=== PATIENT | male | born 1985 | race Caucasian/White ===

== ENCOUNTER 2020-03-31 14:33 | Emergency (ER) | payer OTHER, SELFPAY ==
[2020-03-31 15:34] VITALS: BP 158/88; PULSE 82; RESP 16; TEMP 36.5; O2SAT 97; BMI 23.6
--- NOTE | 2020-03-31 16:58 | ED.DENTAL ---
HPI - Dental/Oral General Chief complaint: Dental/Oral Stated complaint: DENTAL PAIN Time Seen by Provider: 03/31/20 16:52 Source: patient Mode of arrival: ambulatory History of Present Illness HPI Narrative: 34-year-old male presenting to ED complaining of bilateral lower dental pain worsening over the past few days. Reports pain throbbing, presenting him from sleeping. Admits to dental issue/broken teeth, has been on able to make a dental appointment due to work schedule. Denies radiation to your/throat, oral swelling, fever/chills, drainage from area MD Complaint: tooth pain Related Data Previous Rx's Medication Instructions Recorded acetaminophen-codeine 1 tab PO Q6H PRN 3 Days #9 tab 03/31/20 ibuprofen 600 mg PO Q6H PRN #20 tab 03/31/20 Allergies Allergy/AdvReac Type Severity Reaction Status Date / Time No Known Allergies Allergy Unverified 02/07/20 15:24 Review of Systems Review of Systems: Constitutional: No Weight loss, No Fever, No Chills ENT/Mouth: No Ear Pain, No Nasal Congestion, No Sinus Pain, No Hoarseness, No sore throat, No Rhinorrhea, No Swallowing Difficulty, +dental pain Skin: No Skin Lesions, No rash Yes all other systems are reviewed and are negative [facility] Past Medical History Attestation statement: The following information was validated with the patient. Social History Social History Advance Directives: No Advance Directives Information Provided: Yes Physical Exam Vital Signs: Vital Signs: Last Vital Signs Temp 97.7 F 03/31/20 15:34 Pulse 82 03/31/20 15:34 Resp 16 03/31/20 15:34 BP 158/88 H 03/31/20 15:34 Pulse Ox 97 03/31/20 15:34 Body Mass Index 23.6 Const: General: cooperative and healthy appearing Orientation/consciousness: patient oriented x3 Limitations: no limitations HENMT: Other: Poor dentition. Broken left lower and right lower molars. No gingival swelling/erythema. No fluctuance or induration. + TTP over both broken teeth, no intraoral swelling Head: Yes normal to inspection Ears: hearing grossly normal bilaterally General nose exam: Normal external nose present Face and sinus: Yes normal facial exam Mouth: Normal oral and palatal mucosa present, no drooling and no muffled voice Teeth and gingiva: poor dentition Throat: Yes posterior oropharynx normal and Yes uvula midline Eyes: General: appearance normal, both eyes and all related structures EOM: EOMs intact bilaterally Neck: Neck: Yes normal visual inspection Skin: Rashes: no rashes Wounds: no wounds Neuro: General: patient oriented x3 Gait exam (Neuro): Normal gait present Extrem: General: Yes normal to inspection MDM - Dental/Oral MDM Narrative Medical decision making narrative: No sign of active intraoral infection or abscess Discussed with patient needs close follow-up with dentist, no infection at this time Discharge Plan Discharge Clinical Impression: Toothache Patient Disposition: Home, Self-Care Instructions: Toothache (ED) Additional Instructions: YOU NEED TO SEE DENTIST ICE HER FACE TYLENOL WITH CODEINE IS AN OPIATE PAIN MEDICATION, TAKE ONLY WHEN PAIN IS SEVERE FOR THE NEXT 3 DAYS ALSO TAKE IBUPROFEN IF PAIN PERSISTS OR WORSENS, YOU FEVER, DRAINAGE FROM YOUR MOUTH RETURN TO THE ED Prescriptions: New ibuprofen 600 mg tablet 600 mg PO Q6H PRN (Reason: fever or pain) Qty: 20 RF: 0 acetaminophen-codeine 300-15 mg tablet 1 tab PO Q6H PRN (Reason: pain) 3 Days Qty: 9 RF: 0 Referrals: Ghazal Robins DMD [Dentist] - 2 days Luis Miguel Lewis DDS [Physician] - 2 days Jeancarlos Hayes DMD [Physician] - 2 days Sherice Sidhu BDS [Physician] - 2 days
[2020-03-31] MEDS: oxyCODONE HCl Immed Release 5 MG TABLET PO (17:19)
[2020-03-31] MEDS: Ibuprofen 800 MG TABLET PO (17:19)
== END 2020-03-31 17:25 | disposition home or self-care (01) ==
PROVIDERS: Emergency Provider Emergency Medicine
DX: K08.89 Other specified disorders of teeth and supporting structures (principal)
CPT/HCPCS: 99283; 99284

== ENCOUNTER 2024-04-08 10:05 | Emergency (ER) | payer OTHER, SELFPAY ==
[2024-04-08 10:10] VITALS: BP 142/87; PULSE 120; RESP 18; TEMP 36.7; O2SAT 100; BMI 25.4
--- NOTE | 2024-04-08 10:35 | ED.GENADULT ---
HPI - General Adult General Chief complaint: Wound/Laceration Stated complaint: Finger lac Time Seen by Provider: 04/08/24 10:34 Source: patient Mode of arrival: ambulatory Limitations: no limitations History of Present Illness ED Provider: Humberto [facility] narrative: Patient is a 38-year-old right-hand dominant male presenting to the emergency department with complaint of laceration to 5th finger of right hand. States he accidentally cut his finger on glass while washing dishes. Unsure of last Tdap, feels it was not within the last 5 years and is agreeable to updating this today. Denies any weakness, numbness, tingling to finger. MD complaint: Laceration finger Onset (ago): hour(s) Location: right and upper extremity Associated symptoms: denies other symptoms Treatments prior to arrival: other (Dressing) Related Data Previous Rx's ?Medication ?Instructions ?Recorded acetaminophen 300 mg-codeine 15 mg 1 tab PO Q6H PRN pain 3 days #9 03/31/20 tablet tabs ibuprofen 600 mg tablet 600 mg PO Q6H PRN fever or pain 03/31/20 #20 tabs Allergies Allergy/AdvReac Type Severity Reaction Status Date / Time No Known Allergies Allergy Verified 04/08/24 10:12 Review of Systems Review of Systems: As per HPI. Yes all other systems are reviewed and are negative Constitutional: Constitutional: Reports as per HPI [facility] Social History Social History Advance Directives: No Advance Directives Information Provided: Yes Do you have a plan to hurt others: No Plan Physical Exam ED Vital Signs: Vital Signs - 24 hr 04/08/24 10:10 Temperature 98.1 F Pulse Rate 120 H Respiratory Rate 18 Blood Pressure 142/87 H Pulse Oximetry 100 Oxygen Delivery Method Room Air BMI result Body Mass Index 25.4 Vital signs have been reviewed and appear to be correct. Blood pressure normal. Heart rate tachycardic. Respiratory rate normal. Temperature normal. Oxygen saturation normal. Const General: cooperative, healthy appearing and no acute distress Orientation/consciousness: oriented to person, oriented to place, oriented to time and patient oriented x3 Limitations: no limitations HENMT Head: Yes normocephalic and Yes atraumatic Ears: external ears normal General nose exam: Normal external nose present Face and sinus: Yes face symmetric Mouth: oropharynx normal and moist mucous membranes Throat: Yes uvula midline Eyes Pupils: Equal, round and reactive pupils present Neck Neck: Yes normal visual inspection and Yes supple Resp Effort & Inspection: normal respiratory effort and able to speak in complete sentences Auscultation: clear to auscultation bilaterally Cardio Rate: regular rate Rhythm: regular rhythm Heart sounds: S1 normal heart sound present and S2 normal heart sound present GI Palpation (GI): Soft to palpation and nontender Auscultation: normoactive bowel sounds General: Yes no CVA tenderness Back/Spine/Pelvis Back: no CVA tenderness Skin General skin exam: elasticity normal and turgor normal Neuro General: oriented to person, oriented to place, oriented to time, patient oriented x3, moves all extremities, no focal motor deficits and CN's II-XI intact bilaterally Cranial nerves: Yes Equal, round and reactive pupils present Cognition (Neuro): normal cognition Extrem General: Yes full ROM, Yes no pedal edema and Yes no calf tenderness Right upper extremity: Extremity exam: right hand Details: normal capillary refill, neuromotor exam normal, neurosensory exam normal, tendon exam normal, normal ROM of fingers and laceration (V-shaped laceration extending from palmar side up over distal tip to lateral nail fold) 5th digit distal Details: involving subcutaneous tissue Psych Mental Status: mental status grossly normal Affect: normal affect Thought process: Normal thought process present Medications Administered Discontinued Medications Generic Name Dose Route Start Last Admin Trade Name Trang PRN Reason Stop Dose Admin Bacitracin 1 appl 04/08/24 10:59 04/08/24 11:12 Bacitracin Oint 0.9 Gm Packet TOPICAL 04/08/24 11:00 1 appl ONCE ONE Administration Protocol Diphtheria/Tetanus/Acell Pertussis 0.5 ml 04/08/24 10:59 04/08/24 11:12 Diphth,Pertus(Acell),Tet Adult 0.5 Ml Syringe IM 04/08/24 11:00 0.5 ml .ONCE ONE Administration Lidocaine HCl 5 ml 04/08/24 10:59 04/08/24 11:13 Lidocaine Hcl 1 % Mpf 5 Ml Vial INFILTRATI 04/08/24 11:00 5 ml ONCE ONE Administration Procedures Laceration Laceration 1: Site: hand Side (If applicable): right Size (cm): 2 Description: flap Depth: simple, single layer Local Anesthetic: lidocaine 1% Amount of anesthesia used (mL): 3 Pre-repair: wound explored, irrigated extensively and deep structures intact Skin layer closed with: other (prolene) Size (cm): 5-0 Technique: simple, interrupted Medical Decision Making Medical Decision Making [facility] Narrative: Patient is a 38-year-old right-hand dominant male presenting to the emergency department with complaint of laceration to 5th finger of right hand. On exam patient is awake, A+Ox3, tachycardic, VS otherwise WNL, afebrile, normal neurological exam without focal deficits, physical exam findings as above. Given reported symptoms and physical exam findings, initial differential includes laceration, tendon or nerve injury. Patient neurovascularly intact on exam. Tdap updated. Laceration repaired as per procedure note. Wound care instructions discussed at bedside as well as return precautions. Follow up with PCP, return for suture removal. Patient verbalized understanding of and agreement with plan. Differential Diagnosis Differential Diagnoses: The differential diagnosis associated with the presentation includes As per [facility] External Record Review External record reviewed: Inpatient record, Office record and Outpatient record Discharge Plan Discharge Clinical Impression: Laceration of finger of right hand Patient Disposition: Home, Self-Care Instructions: Care For Your Stitches (DC), Laceration (DC), Finger Laceration (ED), Stitches Removal (ED) Additional Instructions: You have been evaluated in the emergency department today for a laceration to your finger. Your laceration was repaired in the emergency department with 9 sutures. Please keep the area surrounding the laceration clean and dry and keep dressing in place for the next 24 hours. After that please change the dressing and assess the wound daily for signs of infection. DO NOT SUBMERGE YOUR HAND IN WATER UNTIL THE STITCHES HAVE BEEN REMOVED AND THE WOUND IS FULLY HEALED (no washing dishes, swimming, hot tubs, etc). Keep the area out of direct sunlight for the next 6 months to help prevent scarring. You should have the sutures removed in 7-10 days. If you develop fever, redness, swelling at the site of your laceration, or thick yellow drainage please come back to the ER for a wound check. Prescriptions: No Action ibuprofen 600 mg tablet 600 mg PO Q6H PRN (Reason: fever or pain) Qty: 20 0RF acetaminophen-codeine 300-15 mg tablet 1 tab PO Q6H PRN (Reason: pain) 3 Days Qty: 9 0RF Stand Alone Forms: Work/School Release Print Language: Indonesian
[2024-04-08] MEDS: Diphth,Pertus(ACell),Tet Adult 0.5 ML SYRINGE IM (11:12)
[2024-04-08] MEDS: Bacitracin Oint 0.9 GM PACKET 1 APPL TOPICAL (11:12)
[2024-04-08] MEDS: Lidocaine HCl 1 % MPF 5 ML VIAL INFILTRATI (11:13)
[2024-04-08 12:07] VITALS: BP 142/87; PULSE 120; RESP 18; TEMP 36.7; O2SAT 100
== END 2024-04-08 12:08 | disposition home or self-care (01) ==
PROVIDERS: Emergency Provider Emergency Medicine
DX: S61.216A Laceration without foreign body of right little finger without damage to nail, initial encounter (principal); M79.641 Pain in right hand; W25.XXXA Contact with sharp glass, initial encounter; Y93.89 Activity, other specified; Y92.89 Other specified places as the place of occurrence of the external cause; Y99.8 Other external cause status; Z23 Encounter for immunization
CPT/HCPCS: 12041; 90471; 90715; 99282; 99284; J2003

== ENCOUNTER 2024-04-17 11:47 | Emergency (ER) | payer OTHER, SELFPAY ==
[2024-04-17 12:22] VITALS: BP 136/81; PULSE 107; RESP 20; TEMP 37; O2SAT 96; BMI 25.1
--- NOTE | 2024-04-17 12:30 | ED_ITS ---
HPI - General Adult General Chief complaint: Wound/Laceration Stated complaint: Suture removal Time Seen by Provider: 04/17/24 12:30 Source: patient Mode of arrival: ambulatory Limitations: no limitations History of Present Illness ED Provider: kenenth [facility] narrative: Patient is a 38-year-old male presenting for removal of sutures from 5th finger of right hand. Sutures placed here on 04/08. Denies any complaints/complications. MD complaint: suture removal Onset (ago): day(s) Associated symptoms: denies other symptoms Treatments prior to arrival: none Related Data Previous Rx's ?Medication ?Instructions ?Recorded acetaminophen 300 mg-codeine 15 mg 1 tab PO Q6H PRN pain 3 days #9 03/31/20 tablet tabs ibuprofen 600 mg tablet 600 mg PO Q6H PRN fever or pain 03/31/20 #20 tabs Allergies Allergy/AdvReac Type Severity Reaction Status Date / Time No Known Allergies Allergy Verified 04/17/24 12:24 Review of Systems Review of Systems: As per HPI Yes all other systems are reviewed and are negative Constitutional: Constitutional: Reports as per HPI [facility] Social History Social History Advance Directives: No Advance Directives Information Provided: Yes Do you have a plan to hurt others: No Plan Physical Exam ED Vital Signs: Vital Signs - 24 hr 04/17/24 12:22 04/17/24 12:33 Temperature 98.6 F 98.6 F Pulse Rate 107 H 107 H Respiratory Rate 20 20 Blood Pressure 136/81 136/81 Pulse Oximetry 96 96 Oxygen Delivery Method Room Air Room Air BMI result Body Mass Index 25.1 Vital signs have been reviewed and appear to be correct. Blood pressure normal. Heart rate normal. Respiratory rate normal. Temperature normal. Oxygen saturation normal. Const General: cooperative, healthy appearing and no acute distress Orientation/consciousness: oriented to person, oriented to place, oriented to time and patient oriented x3 Limitations: no limitations HENMT Head: Yes normocephalic and Yes atraumatic Ears: external ears normal General nose exam: Normal external nose present Face and sinus: Yes face symmetric Mouth: oropharynx normal and moist mucous membranes Throat: Yes uvula midline Eyes Pupils: Equal, round and reactive pupils present Neck Neck: Yes normal visual inspection and Yes supple Resp Effort & Inspection: normal respiratory effort and able to speak in complete sentences Auscultation: clear to auscultation bilaterally Cardio Rate: regular rate Rhythm: regular rhythm Heart sounds: S1 normal heart sound present and S2 normal heart sound present Skin General skin exam: elasticity normal and turgor normal Neuro General: oriented to person, oriented to place, oriented to time, patient oriented x3, moves all extremities, no focal motor deficits and CN's II-XI intact bilaterally Cranial nerves: Yes Equal, round and reactive pupils present Cognition (Neuro): normal cognition Extrem General: Yes full ROM, Yes no pedal edema and Yes no calf tenderness Right upper extremity: Extremity exam: right hand (wound to 5th distal finger well healed, sutures in place) Psych Mental Status: mental status grossly normal Affect: normal affect Thought process: Normal thought process present Medical Decision Making Medical Decision Making [facility] Narrative: Patient is a 38-year-old male presenting for removal of sutures from 5th finger of right hand. On exam patient is awake, A+Ox3, VS WNL, afebrile, normal neurological exam without focal deficits, physical exam findings as above. Given reported symptoms and physical exam findings, initial differential includes suture removal, wound check, cellulitis. Wound appears to be well healing. No evidence of cellulitis on exam. #9 sutures removed without difficulty with success. Band-aid applied. Wound care discussed as well as return precautions. Patient verbalized understanding of and agreement with plan. Differential Diagnosis Differential Diagnoses: The differential diagnosis associated with the presentation includes As per [facility] External Record Review External record reviewed: Inpatient record, Office record and Outpatient record Discharge Plan Discharge Clinical Impression: Visit for suture removal Patient Disposition: Home, Self-Care Instructions: Stitches Removal (ED) Additional Instructions: You were seen in the emergency department today for suture removal. Your wound appears to be healing well. Please keep the area surrounding the wound clean and dry andcover with Band-Aid until fully healed. Do not submerge in water until fully healed. Please continue to assess the wound daily. Keep the area out of direct sunlight for the next 6 months to help prevent scarring. If you develop fever, redness, swelling at the site of your laceration, or thick yellow drainage please come back to the ER for a wound check. Prescriptions: No Action ibuprofen 600 mg tablet 600 mg PO Q6H PRN (Reason: fever or pain) Qty: 20 0RF acetaminophen-codeine 300-15 mg tablet 1 tab PO Q6H PRN (Reason: pain) 3 Days Qty: 9 0RF Interventions: ED Discharge Assessment Last Done: 04/17/24 12:33 Discharge Date/Time: 04/17/24 12:34 Print Language: Romanian
[2024-04-17 12:33] VITALS: BP 136/81; PULSE 107; RESP 20; TEMP 37; O2SAT 96
== END 2024-04-17 12:34 | disposition home or self-care (01) ==
LOC: HO.ED 12:32
PROVIDERS: Emergency Provider Emergency Medicine
DX: Z48.02 Encounter for removal of sutures (principal)
CPT/HCPCS: 99282